=== PATIENT | female | born 1965 | race African-American/Black ===

== ENCOUNTER → 2017-12-10 | Outpatient (CLI) | payer OTHER ==
[~2017-12-10] VITALS: Ht 160 cm; Wt 80.5 kg
[~2017-12-10] MED LIST: ACYCLOVIR 400400 MG PO; ALAVERT10 MG PO; ASPERDRINK81 MG PO; BAYER CHEWABLE81 MG PO; COZAAR 50 MG TA50 M1 PO; CYMBALTA30 MG PO; CYMBALTA60 MG PO; HYDROCHLOROTHIA25 M2 PO; HYDROCODON-ACE1 EAC5 PO; HYDROCODON-ACE1 EACH PO; IMITREX 50 MG T50 MG PO; IRON325 PO; K-DUR 20 MEQ T20 MEQ PO; KLOR-CON 10 ER10 MEQ PO; LIPITOR20 MG PO; MELOXICAM15 MG PO; MIRALAX17 GM PO; NORCO 10-325 T1 EACH; NORCO 10-325 T1 EACH PO; OMEPRAZOLE 20 M20 MG PO; OMEPRAZOLE40 MG PO; OS-CAL 500+D C1 EACH PO; OXYCONTIN CR 1010 M1; PROZAC 20 MG20 MG PO; RANITIDINE 150150 M1 PO; RAPIFLUX20 MG PO; REGLAN 10 MG TA10 MG PO; ROBAXIN 750 MG750 M1; SEROQUEL 100 M100 MG PO; TOPAMAX 25 MG T25 M1 PO; TOPAMAX50 MG PO; VITAMIN B-12500 MCG PO; VITAMIN D31000 UNIT PO; ZANTAC 150MG T150 M1 PO
[2017-12-10 13:24] VITALS: BP 134/95
== END ==
LOC: PAIN 06:40
DX: Z09 Encounter for follow-up examination after completed treatment for conditions other than malignant neoplasm (principal); I10 Essential (primary) hypertension; F17.210 Nicotine dependence, cigarettes, uncomplicated

== ENCOUNTER → 2019-06-23 | Outpatient (CLI) | payer OTHER ==
[~2019-06-23] VITALS: Ht 160 cm; Wt 77.6 kg
[~2019-06-23] MED LIST changes: +MIRALAX119 GM PO
[2019-06-23 09:13] VITALS: BP 149/101
--- NOTE | 2019-06-23 09:17 | NUR ---
Pain Clinic Assessment: 1. History of Osteoarthritis: Left Lower Extremity Right Lower Extremity Right Upper Extremity Left Upper Extremity History of Rheumatoid Arthritis: Not Applicable 2. Height: 5 ft. 3 in. 160.0 cm. Weight: 171.0 lb. oz. 77.565 kg. Patient's BMI: 30.3 3. Vital Signs: BP: 149/101 Pulse: 104 Resp: 18 Temp: 02 Sat: 99 ECG Mon: 4. Pain Intensity: 9 5. Fall Risk: Dizziness: N Needs help standing or walking: N Fallen in the last 3 months: Y Fall risk comments: 6. Patient on Blood Thinner: None 7. History of Hypertension: Y 8. Opioid Therapy greater than 6 weeks: N Opiate Contract Signed: 9. Risk Assessment Tool Provided: 10. Functional Assessment Tool: 11. Recreational Drug Use: Current within past 3 mos Drug Type: Tobacco Use: Current Every Day Smoker Tobacco Type: Cigarettes Amount or Packs/day: 1/2 How Many Years: 40 Alcohol Use: Yes Frequency: Special Occasions Quant:
--- NOTE | 2019-06-24 12:57 | HPC ---
[facility] [address] [place] [address] PAIN MANAGEMENT CONSULTATION Name: BEVERLEY RAINEY Room #: REG [facility].#: [id number] Admission: 06/23/19 Attend Phys: Arun Cm DO Discharge: Date of : 61 Report #: [id number] THIS REPORT FOR: //name// CC: Arun Ramos MD Physician staff DATE OF SERVICE: 06/23/2019 CHIEF COMPLAINT: Low back pain. HISTORY OF PRESENT ILLNESS: As you know, the patient is a 54-year-old female returning in followup visit to discuss explantation of spinal cord stimulator. The patient made today's appointment to discuss her concerns about the spinal cord stimulator. She has a [employer] device that was implanted by Dr. Ramos in 2013. The patient underwent trial implantation at our clinic 1n 2013 with explantation of the device. She has been lost to followup visit to Dr. Ramos since that time except for some intermittent returns for spinal cord stimulator reprogramming. The patient states that she has undergone reprogramming again to address ongoing pain, but she does not feel the device is providing much in the way of benefit. She states she has actually turned off the device over a month ago and has noted no changes. She returns today to discuss the option of explantation of the device as it is causing her some irritation and she is unable to wear her daily clothing without causing pain. ALLERGIES: TAPE, CODEINE, LATEX. CURRENT MEDICATIONS: Atorvastatin 20 mg per day, sumatriptan 50 mg p.r.n., duloxetine 60 mg once a day, ferrous sulfate 325 mg per day, MiraLax 17 grams per day. SOCIAL HISTORY: The patient reports she smokes half pack tobacco per day, has done so for 40 years. Denies alcohol use, but does admit to daily marijuana use. She is not working, not receiving workmen's compensation. She is unaccompanied today. IMAGING: There is no new imaging available. PHYSICAL EXAMINATION: VITAL SIGNS: Blood pressure 149/101, pulse 104, respiratory rate 18 and unlabored. The patient is 99% on room air. Height 5 feet 3 inches tall, weight 171 pounds, BMI calculated 30.3. GENERAL: Well-developed, well-nourished, well-hydrated 54-year-old female appearing stated age, placing pain score today at around 9/10. HEENT: Normocephalic, atraumatic. Pupils equal, round, reactive to light. [facility] [address] [place] [address] PAIN MANAGEMENT CONSULTATION Name: BEVERLEY RAINEY Juany Room #: REG [facility]#: [id number] Admission: 06/23/19 Attend Phys: Arun Cm DO Discharge: Date of : 61 Report #: [id number] Speech is somewhat pressured. She is deemed a good historian. EXTREMITIES: Show no clubbing, no cyanosis, and no edema. The patient is wearing a right wrist brace. MUSCULOSKELETAL: The patient has some palpatory tenderness over the paraspinal musculature of lower lumbar spine. No spinous process tenderness. Spinal cord stimulator pulse generator is in place and well healed. There is some palpatory tenderness over this area as well. There does not appear to be any changes in skin color, texture overlying the area concerning for infection or changes in the skin color indicating potential problems with the device itself. ASSESSMENT: 1. Chronic low back pain. 2. Pain with a pulse generator for spinal cord stimulator. 3. Chronic intractable pain. PLAN: 1. The patient returns today in followup visit requesting explantation of the spinal cord stimulator as the pain from the area is becoming intolerable. She indicates that she is unable to wear normal clothing due to the positioning of the pulse generator precluding her from wearing any tight waisted garments or even belts with her pants. She has requested explantation of device. I advised the patient at this time we do not offer explantation procedures for spinal cord stimulating devices. We defer to the implanting physician for explantation of device. We recommend strongly that the patient will follow up with Dr. Raoms in regards to this explantation. We did discuss that many individuals will retain the devices unless there is a need for surgical option. The patient is insistent that the device be explanted and she is not receiving benefit and is causing her irritation. 2. The patient will follow up with Dr. Ramos in regards to explantation of spinal cord stimulating device that was implanted in 2013 here at [facility] by Dr. Ramos. I have advised the patient to contact Dr. Ramos's office in regards to explantation and determine if this is a treatment option. 3. No medication changes made at today's visit. The patient will continue current medical therapy as prior prescribed. 4. We made no adjustments in the patient's spinal cord stimulator today as the patient does not feel is beneficial and has had it off for a month and has noted no significant pain difference. It is unfortunate the patient is not seeing good benefit with the device as she must have at one point in time advised both ourselves and Dr. Ramos of good efficacy with the therapy. It is unfortunate she has lost this efficacious therapy. <ELECTRONICALLY SIGNED> By: Arun Cm DO 06/24/19 1257 [id number] 1235 Arun Cm DO /flaco
== END ==
LOC: PAIN 06:38
DX: M54.5 Low back pain (principal); G89.4 Chronic pain syndrome; Z79.899 Other long term (current) drug therapy; Z79.891 Long term (current) use of opiate analgesic; Z88.5 Allergy status to narcotic agent; Z91.040 Latex allergy status

== ENCOUNTER → 2020-03-17 | Outpatient (CLI) | payer OTHER ==
[~2020-03-17] MED LIST changes: +ADVAIR 250-501 EACH INH; +BENICAR20 MG PO; +DULOXETINE HCL60 MG PO; +FLONASE 0.05%50 MCG NASAL; +IRON325 M1 PO; +LINZESS145 MCG PO; +METFORMIN HCL500 M3 PO; +MIRTAZAPINE7.5 MG PO; +MULTIVITAMINS PO; +NORFLEX100 MG PO; +PROAIR HFA8.5 GM INH; +PROTONIX40 M2 PO; +VOLTAREN GEL 1100 GM TOP; +ZOFRAN 4 MG ORAL4 MG PO
== END ==
LOC: LAB 08:38
PROVIDERS: ATTEND Podiatrist
DX: Z01.812 Encounter for preprocedural laboratory examination (principal); Z20.828 Contact with and (suspected) exposure to other viral communicable diseases

== ENCOUNTER 2020-03-22 07:02 | Day surgery (SDC) | payer OTHER ==
[~2020-03-22] VITALS: Ht 160 cm; Wt 74.8 kg
--- NOTE | ~2020-03-22 | O ---
[facility] [place] [address] OPERATIVE REPORT Name: BEVERLEY RAINEY Room #: DEP [facility].#: [id number] Admission: 03/22/20 Attend Phys: Jace Vilchis DPM Discharge: 03/22/20 Date of : 61 Report #: [id number] THIS REPORT FOR: cc: ANNIE HERNÁNDEZ MD Physician not on staff Jace Vilchis DPM ~ CC: Jace HERNÁNDEZ Physician staff DATE OF SERVICE: 03/22/2020 SURGEON: Jace Vilchis DPM PREOPERATIVE DIAGNOSIS: Contracted right great toe as well as degenerative joint disease, right great toe joint. POSTOPERATIVE DIAGNOSIS: Contracted right great toe as well as degenerative joint disease, right great toe joint. PROCEDURE: Arthrodesis of the right great toe joint as well as the right hallux IPJ. ANESTHESIA: IV sedation with local nerve block. HEMOSTASIS: Maintained with well-padded ankle tourniquet to the right ankle. ESTIMATED BLOOD LOSS: Minimal. COMPLICATIONS: There were no complications during the procedure or the anesthesia. PREOPERATIVE COURSE: This patient at age 15 had injury that severed her extensor tendon to the great toe. She has since had a contracted plantar flexion of the right great toe, which has caused degenerative joint disease of the right great toe joint and a compensated gait due to the downward contraction and inability of the interphalangeal joint to allow proper propulsion. The patient has had increased disability over the years until she is now opting for surgical correction due to her increasing disability. The patient signed a preoperative consent form, admitting to understanding of the risks and complications of the surgery. DESCRIPTION OF PROCEDURE: The patient was wheeled to the operating room in usual supine condition, transferred to the operative table, given IV sedation. Once the IV sedation was found to be adequate, local nerve block was given to the right foot. The right foot was then prepped and draped in the usual sterile [facility] [address] [place] [address] OPERATIVE REPORT Name: BEVERLEY RAINEY Room #: DEP [facility].#: [id number] Admission: 03/22/20 Attend Phys: Jace Vilchis DPM Discharge: 03/22/20 Date of : 61 Report #: [id number] manner. Upon re-entering the operating room, anesthesia was checked and found to be adequate. A linear longitudinal incision was made over the dorsal medial aspect of the first MPJ. This was deepened sharply and bluntly, taking care to cauterize and retract all bleeders. Access was gained into the first metatarsophalangeal joint where a rotary bur was used to remove the cartilaginous structures from the head of the first metatarsal and the base of the proximal phalanx of the hallux. The toe was then placed in a good anatomical position, slightly dorsiflexion and a slight valgus position. A cannulated screw from the Trilliant cannulated screw set was obtained and placed across the arthrodesis site for temporary fixation. Next, using C-arm radiography, that position was checked and found to be adequate. A 2.7 lag screw was placed through and over the cannulated wire compressing the osteotomy site. The site was again checked with C-arm radiography and found to be adequately anatomically fixated. Next, a Trilliant plate was used from the arsenal set and placed over the arthrodesis site. This was temporarily fixated with the K wires through the appropriate screw holes. Next, locking screws were placed first proximally and then distally and 2 screws placed distal to the arthrodesis site and 2 proximal to the arthrodesis site. Lengths were checked with C-arm radiography and found to be of adequate length and good fixation maintained and compression of the arthrodesis site. The toe was maintained in a very good anatomical position; however, the interphalangeal joint still showed some contracture and this was addressed by a small stab incision dorsally and removing the cartilage from the distal proximal phalangeal head and the base of the distal phalanx. The proximal and distal bones were prepared removing as much cartilage as could be visibly evident. Next, a 4.0 Trilliant lag screw was placed from distal to proximal, again checked under C-arm radiography for position. The cannulated wire was seen to go through the medullary canal of both the distal and proximal phalanx of the right hallux. The appropriate length screw was then obtained and placed over the cannulated wire and good fixation occurred after arthrodesis in the IPJ. The hallux was found to be a good functional and anatomical position and stable fixation maintained throughout both arthrodesis sites. The tourniquet was released and hemostasis maintained using the cautery unit. Closure was then performed using 4-0 Vicryl suture for subcuticular tissue and 4-0 nylon suture in a simple interrupted fashion for closure of the skin tissue on the right great toe joint and right great toe. A sterile dressing was placed to the right foot. The patient left the operating room in stable condition and will follow up in about 3 days for postoperative wound management. By: [id number] 1103 MARIA DEL CARMEN WorthingtonM /nt
--- NOTE | 2020-03-22 07:54 | EKG ---
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
[2020-03-22 08:11] VITALS: BP 120/80
== END 2020-03-22 12:30 | disposition home or self-care (01) ==
LOC: OR 07:02 → TBA 07:03 → OR 11:46
PROVIDERS: ATTEND Podiatrist
DX: M19.071 Primary osteoarthritis, right ankle and foot (principal); M24.574 Contracture, right foot; M25.571 Pain in right ankle and joints of right foot; I10 Essential (primary) hypertension; E11.9 Type 2 diabetes mellitus without complications; E78.5 Hyperlipidemia, unspecified; F32.9 Major depressive disorder, single episode, unspecified; J45.909 Unspecified asthma, uncomplicated; D64.9 Anemia, unspecified; F41.9 Anxiety disorder, unspecified; G43.909 Migraine, unspecified, not intractable, without status migrainosus; K21.9 Gastro-esophageal reflux disease without esophagitis; F17.210 Nicotine dependence, cigarettes, uncomplicated; Z98.890 Other specified postprocedural states; Z90.710 Acquired absence of both cervix and uterus; Z79.899 Other long term (current) drug therapy; Z98.51 Tubal ligation status; Z86.73 Personal history of transient ischemic attack (TIA), and cerebral infarction without residual deficits; Z91.041 Radiographic dye allergy status; Z91.040 Latex allergy status; Z88.8 Allergy status to other drugs, medicaments and biological substances
CPT/HCPCS: 50010; 50101; 50386; 53023; 56526; 56871; 57091; 57178; 5726; 58334; 58337; 58338; 58340; 58343; 58345; 62110; 62900; 70005

== ENCOUNTER → 2020-05-12 | Outpatient (CLI) | payer OTHER ==
[~2020-05-12] MED LIST changes: +BENICAR40 MG PO; +INDERAL LA 80 M80 M1 PO; +LINZESS290 MCG PO; +VERAPAMIL ER120 MG PO
== END ==
LOC: LAB 09:00
PROVIDERS: ATTEND Podiatrist
DX: Z01.812 Encounter for preprocedural laboratory examination (principal); Z20.828 Contact with and (suspected) exposure to other viral communicable diseases

== ENCOUNTER 2020-05-17 11:28 | Day surgery (SDC) | payer OTHER ==
[~2020-05-17] VITALS: Ht 160 cm; Wt 79.4 kg
--- NOTE | ~2020-05-17 | O ---
[facility] [place] [address] OPERATIVE REPORT Name: BEVERLEY RAINEY Room #: DEP [facility].#: [id number] Admission: 05/17/20 Attend Phys: Jace Vilchis DPM Discharge: 05/17/20 Date of : 61 Report #: [id number] THIS REPORT FOR: cc: ANNIE HERNÁNDEZ - Family physician unknown Jace Vilchis DPM ~ DATE OF SERVICE: 05/17/2020 SURGEON: Jace Vilchis DPM. PREOPERATIVE DIAGNOSIS: Migration of hardware, right hallux. POSTOPERATIVE DIAGNOSIS: Migration of hardware, right hallux. PROCEDURE: Removal of painful screw, right great toe. ANESTHESIA: IV sedation with local nerve block. HEMOSTASIS: Applied with well-padded ankle tourniquet to the right ankle. ESTIMATED BLOOD LOSS: Minimal. COMPLICATIONS: There were no complications during the procedure or the anesthesia. PREOPERATIVE COURSE: This patient underwent an arthrodesis of her great toe joint and IPJ and is doing well with the great toe joint, but has bumped or injured the right great toe on a few occasions, causing the possible migration of the screw going through the IPJ. She can feel this at the distal end of her toe and is very painful upon any manipulation of the toe. X-ray examination in the office did show distal migration of the screw, so due to her anxiety and inability to remove this in the office, we have opted for IV sedation, outpatient surgery to remove the hardware. The patient understood the risks and complications of surgery and signed a preoperative consent form, admitting to understanding. DESCRIPTION OF PROCEDURE: The patient was wheeled to the operating room in usual supine condition, was transferred to the operative table, given IV sedation. Once the IV sedation was found to be adequate, local nerve block was given to the great toe on the right foot. The right foot was then prepped and draped in the usual sterile manner. Upon re-entering the operating room, anesthesia was checked and found to be adequate. An incision with a sterile #15 blade was made at the distal end of the toe over the screw head, which could be palpated and identified subcutaneously. The incision was deepened sharply and bluntly, taking care to cauterize and retract all bleeders. The distal end of the screw was able to be grasped with a small needle car driver and rotated in a [facility] [address] [place] [address] OPERATIVE REPORT Name: BEVERLEY RAINEY Room #: DEP [facility] Bill#: [id number] Admission: 05/17/20 Attend Phys: Jace Vilchis DPM Discharge: 05/17/20 Date of : 61 Report #: [id number] counterclockwise fashion and removed from the wound without any complications. The correction was maintained after removal of the screw and no other pathology identified. Hemostasis was maintained at the distal aspect of the toe and a simple suture and a horizontal mattress stitch was used with 4-0 nylon suture to close the skin wound. A sterile dressing was applied to the great toe. She already has Lortab 7.5 mg/325 for pain management. She was also prescribed Keflex 500 b.i.d. for the next 10 days for prophylaxis to protect the proximal hardware and postoperative infection. Again, sterile dressing was applied. She will ambulate in a postoperative shoe as tolerated and follow up in about 3 days for postoperative wound management. By: 2220 [id number] Jace Vilchis DPM /flaco
[2020-05-17 12:08] VITALS: BP 131/89
[2020-05-17 12:18] LABS: HEMOGLOBIN 12.8 gm/dL (12.0-15.0); MCH 27.7 pg (26.0-34.0); MCHC 32.8 g/dL (28.0-37.0); MCV 84.6 fL (80.0-100.0); RBC 4.62 mil/uL (4.20-5.00); RDW 13.9 % (10.5-14.5); WBC 9.6 thou/uL (4.0-11.0)
== END 2020-05-17 14:50 | disposition home or self-care (01) ==
LOC: OR 11:28 → TBA 11:28 → OR 11:43
PROVIDERS: ATTEND Podiatrist
DX: T84.84XA Pain due to internal orthopedic prosthetic devices, implants and grafts, initial encounter (principal); M79.674 Pain in right toe(s); I10 Essential (primary) hypertension; E11.9 Type 2 diabetes mellitus without complications; E78.00 Pure hypercholesterolemia, unspecified; J45.909 Unspecified asthma, uncomplicated; G43.909 Migraine, unspecified, not intractable, without status migrainosus; D64.9 Anemia, unspecified; F32.9 Major depressive disorder, single episode, unspecified; F41.9 Anxiety disorder, unspecified; K21.9 Gastro-esophageal reflux disease without esophagitis; F17.210 Nicotine dependence, cigarettes, uncomplicated; Z98.890 Other specified postprocedural states; Z79.899 Other long term (current) drug therapy; Z90.710 Acquired absence of both cervix and uterus; Z86.73 Personal history of transient ischemic attack (TIA), and cerebral infarction without residual deficits; Z98.51 Tubal ligation status; Z96.653 Presence of artificial knee joint, bilateral; Z91.041 Radiographic dye allergy status; Z91.040 Latex allergy status; Z88.8 Allergy status to other drugs, medicaments and biological substances; Y83.8 Other surgical procedures as the cause of abnormal reaction of the patient, or of later complication, without mention of misadventure at the time of the procedure
CPT/HCPCS: 50010; 50101; 50386; 56526; 57091; 57178; 62110; 62850; 70005

== ENCOUNTER → 2020-08-11 | Outpatient (CLI) | payer OTHER ==
[~2020-08-11] MED LIST changes: +HAIR, SKIN & N1 EAC2 PO
== END ==
LOC: LAB 14:00
PROVIDERS: ATTEND Podiatrist
DX: Z01.812 Encounter for preprocedural laboratory examination (principal); Z20.822 Contact with and (suspected) exposure to COVID-19

== ENCOUNTER 2020-08-16 06:08 | Day surgery (SDC) | payer OTHER ==
[~2020-08-16] VITALS: Ht 160 cm; Wt 77.1 kg
--- NOTE | ~2020-08-16 | O ---
[facility] [place] [address] OPERATIVE REPORT Name: BEVERLEY RAINEY Juany Room #: DEP [facility].#: [id number] Admission: 08/16/20 Attend Phys: Jace Vilchis DPM Discharge: 08/16/20 Date of : 61 Report #: [id number] THIS REPORT FOR: cc: Physician not on staff Physician not on staff Jace Vilchis DPM ~ DATE OF SERVICE: 08/16/2020 SURGEON: Jace Vilchis DPM. PREOPERATIVE DIAGNOSES: Arthritis, degenerative joint disease, right great toe interphalangeal joint. POSTOPERATIVE DIAGNOSES: Arthritis, degenerative joint disease, right great toe interphalangeal joint. PROCEDURE: Arthrodesis of the IPJ right great toe. ANESTHESIA: IV sedation with local nerve block. HEMOSTASIS: Applied well-padded ankle tourniquet to the right ankle. ESTIMATED BLOOD LOSS: Minimal. COMPLICATIONS: There were no complications during the procedure or the anesthesia. PREOPERATIVE COURSE: This patient had a flaccid right great toe due to an injury several years ago. Earlier, she was operated on to fuse the great toe joint, which was a success; however, attempt at fusion of the IP joint at the same time failed as she had issues with the screw placed through the joint and it had to be removed. The patient later on developed pain and need for return to surgery for rearthrodesis of the right great toe IPJ. She has no symptoms associated with her MPJ fusion. The patient understands risks and complications of surgery, signed a preoperative consent form, admitting to understanding. DESCRIPTION OF PROCEDURE: The patient was wheeled to the operating room in usual supine condition, transferred to the operating table, given IV sedation. Once IV sedation was found to be adequate, local nerve block was given to the right foot. The right foot was then prepped and draped in the usual sterile manner. Upon re-entering the operating room, anesthesia was checked and found to be adequate. Esmarch tourniquet was used to exsanguinate the blood from the right foot and ankle tourniquet elevated to 250 mmHg. A linear longitudinal incision was made over the dorsal aspect of the right hallux. This was deepened sharply and bluntly, taking care to cauterize and retract all bleeders. Access [address] [address] OPERATIVE REPORT Name: BEVERLEY RAINEY Room #: DEP [facility].#: [id number] Admission: 08/16/20 Attend Phys: Jace Vilchis DPM Discharge: 08/16/20 Date of : 61 Report #: [id number] was gained to the bony structures of the proximal and distal phalanx of the right hallux and the bone was stripped of the periosteum and scar tissue, exposing the failed arthrodesis site. A rasp was used to freshen the edges of the arthrodesis site to bleeding bone. Next, the two bony edges were placed together and temporarily fixated with a K-wire and held in good position. Next, a #10 staple was decided on from the Trilliant set. Using the drill guide, two drill holes were made for the arms of the staple. A drill guide was removed and the staple inserted into the aforementioned drill holes. This was then tamped down and secured. There was a good fixation, but still some movement, so a second #10 staple was retrieved and implanted in a similar fashion beside the previously implanted staple and this was found to have good stable fixation at the IP. The tourniquet was released to the right foot and hemostasis maintained using the cautery unit. Deep closure was performed with 4-0 Vicryl suture and subcuticular closure also with 4-0 Vicryl suture. A sterile dressing was applied to the right hallux along with Steri-Strips to help augment the skin closure. The patient will ambulate in a postoperative shoe and be seen in the office for a wound evaluation in 3 days. She was given a prescription for Keflex 500 mg b.i.d. for wound prophylaxis and also Lortab 7.5 mg/325 for pain management. The patient left the operating room in stable condition and will follow up again like I mentioned in 3 days for postoperative evaluation. By: 26 45 Jace Vilchis DPM /nt
[2020-08-16 06:45] VITALS: BP 104/67
== END 2020-08-16 09:35 | disposition home or self-care (01) ==
LOC: OR 06:08 → TBA 06:08 → OR 09:15
PROVIDERS: ATTEND Podiatrist
DX: M19.071 Primary osteoarthritis, right ankle and foot (principal); M79.674 Pain in right toe(s); I10 Essential (primary) hypertension; E11.9 Type 2 diabetes mellitus without complications; J45.909 Unspecified asthma, uncomplicated; E78.00 Pure hypercholesterolemia, unspecified; G43.909 Migraine, unspecified, not intractable, without status migrainosus; D64.9 Anemia, unspecified; F41.9 Anxiety disorder, unspecified; F32.9 Major depressive disorder, single episode, unspecified; F17.210 Nicotine dependence, cigarettes, uncomplicated; Z98.890 Other specified postprocedural states; Z79.899 Other long term (current) drug therapy; Z96.653 Presence of artificial knee joint, bilateral; Z86.73 Personal history of transient ischemic attack (TIA), and cerebral infarction without residual deficits; Z90.710 Acquired absence of both cervix and uterus; Z98.51 Tubal ligation status; Z91.041 Radiographic dye allergy status; Z91.040 Latex allergy status; Z88.6 Allergy status to analgesic agent; Z88.8 Allergy status to other drugs, medicaments and biological substances
CPT/HCPCS: 50010; 50101; 50386; 56526; 57091; 58175; 62110; 62850; 70005

== ENCOUNTER → 2020-10-03 | Outpatient (CLI) | payer OTHER ==
--- NOTE | ~2020-10-03 | O ---
[facility] [place] [address] OPERATIVE REPORT Name: BEVERLEY RAINEY Room #: REG [facility]#: [id number] Admission: 10/03/20 Attend Phys: Jace Vilchis DPM Discharge: Date of : 61 Report #: [id number] THIS REPORT FOR: cc: FAM - Family physician unknown FAM - Family physician unknown Jace Vilchis DPM ~ DOC #: [id number] Jace Vilchis DPM DATE OF SERVICE: 10/04/2020 PREOPERATIVE DIAGNOSIS: Contracted, right great toe. POSTOPERATIVE DIAGNOSIS: Contracted right great toe and failure of hardware, right great toe. PROCEDURE: Insertion of a 4.0 Trilliant screw for stabilization of the contracted toe, removal of failed hardware, the lateral staple in the IPJ. HEMOSTASIS: Applied a well-padded ankle tourniquet to the right ankle. ESTIMATED BLOOD LOSS: Minimal. COMPLICATIONS: There were no complications during the procedure or the anesthesia. PREOPERATIVE COURSE: This patient had an attempted fusion of the right great toe, which did loosen and cause some pain as there was movement at the arthrodesis site. The tatyana were intact. They were placed during the previous surgery, but a little bit of movement she had regained was still painful so it was opted for that we place a screw to increase stabilization, which should eliminate her pain. The patient understood the risks and complications of surgery and signed a preoperative consent form admitting to her understanding of the risks and complications as well as the technical aspects of the procedure. DESCRIPTION OF PROCEDURE: The patient was wheeled to the operating room in the supine condition, transferred to the operative table, given IV sedation. Once IV sedation was found to be adequate. Local nerve block was given to the right great toe. The right great toe was then prepped and draped in the usual sterile manner. A Trilliant cannulated wire was obtained and through C-arm visualization was placed through the medullary canal of the proximal phalanx and distal phalanx of the right hallux. Once good visualization through the central medullary area of these 2 bones was identified, the site was measured and found to be 46 mm in required length of the screw. A 4.0 cannulated Trilliant screw was obtained and placed over the cannulation after two stab incisions were made on either side of the cannulated wire for insertion of the screw. This was hand [address] [address] OPERATIVE REPORT Name: BEVERLEY RAINEY Room #: REG [facility]#: [id number] Admission: 10/03/20 Attend Phys: Jace Vilchis DPM Discharge: Date of : 61 Report #: [id number] screwed over the cannulated wire through the proximal and distal phalanx. In the process of screen in the screw, the lateral staple was contacted and came free and was visualized externally on the dorsal right great toe. The screw was tightened upon end range of motion visualized to be flush with the distal aspect of the toe and then through the central aspect of the medullary canal of the proximal distal phalanx and in good position. It was then decided that we needed to retrieve the lateral staple which we did do a small incision and the staple was easily identified and grasped using a needle transit driver and removed from the wound. Again, another C-arm radiography was visualized good position of the screw and removal of the staple. The medial staple remained in the wound as it was providing good contact. The wounds were copiously flushed with sterile saline. The cannulated wire was removed. The dorsal incision was reopposed using 4-0 nylon suture in a simple interrupted fashion as well as one simple stitch on the distal aspect of the right great toe for closure of that wound. Hemostasis was maintained throughout with a cautery unit. Sterile dressing applied to the right great toe, which upon external manipulation was found to be very stable and rigid. The patient left the operating room in stable condition. We will follow up in about 3 days for postoperative wound management, ambulate in the postoperative shoe as tolerated. She was given Lortab 7.5 mg/325 for pain management and Keflex 500 mg b.i.d. for 10 days for wound prophylaxis. BLU Gallego/JOJO By: 34 Jace Vilchis DPM /flaco
== END ==
LOC: LAB 12:02
PROVIDERS: Student in an Organized Health Care Education/Training Program; ATTEND Podiatrist
DX: Z01.812 Encounter for preprocedural laboratory examination (principal); Z20.822 Contact with and (suspected) exposure to COVID-19

== ENCOUNTER → 2020-10-04 | Day surgery (SDC) | payer OTHER ==
[~2020-10-04] VITALS: Ht 160 cm; Wt 73.9 kg
--- NOTE | ~2020-10-04 | O ---
[facility] [place] [address] OPERATIVE REPORT Name: BEVERLEY RAINEY Room #: REG [facility].#: [id number] Admission: 10/04/20 Attend Phys: Jace Vilchis DPM Discharge: Date of : 61 Report #: [id number] THIS REPORT FOR: cc: FAM - Family physician unknown FAM - Family physician unknown Jace Vilchis DPM ~ DOC #: [id number] Jace Vilchis DPM DATE OF SERVICE: 10/04/2020 PREOPERATIVE DIAGNOSIS: Contracted, right great toe. POSTOPERATIVE DIAGNOSIS: Contracted right great toe and failure of hardware, right great toe. PROCEDURE: Insertion of a 4.0 Trilliant screw for stabilization of the contracted toe, removal of failed hardware, the lateral staple in the IPJ. HEMOSTASIS: Applied a well-padded ankle tourniquet to the right ankle. ESTIMATED BLOOD LOSS: Minimal. COMPLICATIONS: There were no complications during the procedure or the anesthesia. PREOPERATIVE COURSE: This patient had an attempted fusion of the right great toe, which did loosen and cause some pain as there was movement at the arthrodesis site. The tatyana were intact. They were placed during the previous surgery, but a little bit of movement she had regained was still painful so it was opted for that we place a screw to increase stabilization, which should eliminate her pain. The patient understood the risks and complications of surgery and signed a preoperative consent form admitting to her understanding of the risks and complications as well as the technical aspects of the procedure. DESCRIPTION OF PROCEDURE: The patient was wheeled to the operating room in the supine condition, transferred to the operative table, given IV sedation. Once IV sedation was found to be adequate. Local nerve block was given to the right great toe. The right great toe was then prepped and draped in the usual sterile manner. A Trilliant cannulated wire was obtained and through C-arm visualization was placed through the medullary canal of the proximal phalanx and distal phalanx of the right hallux. Once good visualization through the central medullary area of these 2 bones was identified, the site was measured and found to be 46 mm in required length of the screw. A 4.0 cannulated Trilliant screw was obtained and placed over the cannulation after two stab incisions were made on either side of the cannulated wire for insertion of the screw. This was hand [address] [address] OPERATIVE REPORT Name: BEVERLEY RAINEY [id number] Admission: 10/04/20 Attend Phys: Jace Vilchis DPM Discharge: Date of : 61 Report #: [id number] screwed over the cannulated wire through the proximal and distal phalanx. In the process of screen in the screw, the lateral staple was contacted and came free and was visualized externally on the dorsal right great toe. The screw was tightened upon end range of motion visualized to be flush with the distal aspect of the toe and then through the central aspect of the medullary canal of the proximal distal phalanx and in good position. It was then decided that we needed to retrieve the lateral staple which we did do a small incision and the staple was easily identified and grasped using a needle locomotive driver and removed from the wound. Again, another C-arm radiography was visualized good position of the screw and removal of the staple. The medial staple remained in the wound as it was providing good contact. The wounds were copiously flushed with sterile saline. The cannulated wire was removed. The dorsal incision was reopposed using 4-0 nylon suture in a simple interrupted fashion as well as one simple stitch on the distal aspect of the right great toe for closure of that wound. Hemostasis was maintained throughout with a cautery unit. Sterile dressing applied to the right great toe, which upon external manipulation was found to be very stable and rigid. The patient left the operating room in stable condition. We will follow up in about 3 days for postoperative wound management, ambulate in the postoperative shoe as tolerated. She was given Lortab 7.5 mg/325 for pain management and Keflex 500 mg b.i.d. for 10 days for wound prophylaxis. BLU Gallego/JOJO By: 34 Jace Vilchis DPM /flaco
[2020-10-04 10:31] VITALS: BP 130/87
== END | disposition home or self-care (01) ==
LOC: OR 09:09
PROVIDERS: ATTEND Podiatrist
DX: M19.071 Primary osteoarthritis, right ankle and foot (principal)
CPT/HCPCS: 50010; 50101; 50386; 50951; 56526; 57091; 57178; 58178; 58340; 62110; 62850; 70005

== ENCOUNTER → 2021-04-13 | Outpatient (CLI) | payer OTHER | LOC: LAB 09:34 | PROVIDERS: ATTEND Student in an Organized Health Care Education/Training Program | DX: U07.1 COVID-19 (principal); Z01.812 Encounter for preprocedural laboratory examination ==

== ENCOUNTER → 2021-05-23 | Day surgery (SDC) | payer OTHER ==
[~2021-05-23] VITALS: Ht 160 cm; Wt 77.1 kg
--- NOTE | 2021-05-23 07:59 | EKG ---
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 : 1965 Requested By: Jace Vilchis Order Number: [id number] MD: King Juarez Measurements Intervals [place] Rate: 76 P: 46 [place]: 158 QRS: 10 QRSD: 81 T: 28 QT: 374 QTc: 421 Interpretive Statements Sinus rhythm Probable left atrial enlargement Compared to ECG 03/22/2020 07:48:06 No significant changes Electronically Signed On 05-23-2021 7:59:40 ELECTRICAL AND INSTRUMENTATION MECHANIC by King Juarez [email or web address] <ELECTRONICALLY SIGNED> By: King Juarez MD, [facility] 05/23/21 0759 0726 0726 King Juarez MD, [facility] /EPI
[2021-05-23 08:00] VITALS: BP 119/81
--- NOTE | 2021-06-07 13:12 | O ---
[facility] [place] [address] OPERATIVE REPORT Name: BEVERLEY RAINEY Room #: REG [facility]#: [id number] Admission: 05/23/21 Attend Phys: Jace Vilchis DPM Discharge: Date of : 61 Report #: [id number] THIS REPORT FOR: cc: FAM - Family physician unknown FAM - Family physician unknown Jace Vilchis DPM ~ DATE OF SERVICE: 05/23/2021 SURGEON: Jace Vilchis DPM. PREOPERATIVE DIAGNOSIS: Degenerative joint disease, interphalangeal joint, right hallux. POSTOPERATIVE DIAGNOSIS: Degenerative joint disease, interphalangeal joint, right hallux. PROCEDURE: Arthrodesis of the IPJ right hallux. ANESTHESIA: IV sedation with local nerve block. Hemostasis was applied, well-padded ankle tourniquet to the right ankle. ESTIMATED BLOOD LOSS: Minimal. COMPLICATIONS: There were no complications during the procedure or the anesthesia. PREOPERATIVE COURSE: This patient has previously had an attempted fusion on the interphalangeal joint of the right hallux with a single screw from distal to proximal in the great toe. This worked for a short period of time and then loosened and the joint became mobile and painful. X-rays in the office confirmed the presence of movement within the screw and the medullary canal of the proximal phalanx of the right hallux. We then opted to proceed with arthrodesis using a compression plate on the dorsal aspect of the IPJ and leaving the screw in place as a third point of fixation. The patient understood the risks and complications of surgery and signed a preoperative consent form admitting to her understanding. DESCRIPTION OF PROCEDURE: The patient was wheeled to the operating room in supine condition, transferred to the operative table, given IV sedation. Once IV sedation was found to be adequate, local nerve block was given to the right foot. The right foot was then prepped and draped in the usual sterile manner. Upon re-entering the operating room, anesthesia was checked and found to be adequate. Esmarch tourniquet was used to exsanguinate blood from the right foot and the ankle tourniquet elevated to 250 mmHg. A L-shaped incision was made over the dorsal aspect of the right hallux interphalangeal joint exposing the [address] [address] OPERATIVE REPORT Name: BRIGIDBEVERLEY Room #: REG [facility].#: [id number] Admission: 05/23/21 Attend Phys: Jace Vilchis DPM Discharge: Date of : 61 Report #: [id number] previously arthrodesed IPJ. There was a remaining staple that was left in previously that was removed in order to add more compression to the site with the plate. The great toe was then dissected layer by layer avoiding neurovascular structures until the bone and joint of the interphalangeal joint of the right hallux was identified and reached. The soft tissue was reflected from the dorsal aspect of the right first and second phalanx of the hallux preparing for the plate. A 3-hole plate was obtained and placed over the site and found to adequately cover the proposed arthrodesis site. Temporary K-wires were used to position the plate. The proximal hole was drilled first and measured and this turned out to be a 14 mm screw to be placed in a locking hole. This was placed without complications and tightened on end range of motion and providing stability of the proximal aspect of the plate. Next, the wire was removed from the distal aspect of the plate and the compression hole drilled again measuring 14 mm in length and a 14 mm screw placed in the compression hole of the plate. Next, a drill hole was drilled in the third and final hole of the plate again measured to be 14 mm in length and a 14 mm screw placed in this plate and compression was achieved through the plate and through visualization of C-arm radiography. Upon external evaluation, the joint was checked manually and found to be in good stable form and in good anatomical position. This was affirmed using C-arm radiography. The tourniquet was released and capillary refill immediately returned to all digits on the right foot. Hemostasis was maintained using a cautery unit. Closure was performed using 4-0 Vicryl suture in a subcuticular fashion and closure of the skin was performed using 4-0 nylon suture in a horizontal and simple interrupted mattress sutures. Sterile dressing was applied to the right foot. Again, one more x-ray was taken through C-arm radiography and found to be in good anatomical position as far as the hardware and the position of the arthrodesis. The patient left the operating room in stable condition. She will be given Lortab 7.5 mg/325 for pain management and will follow up in the office in about 3 days. She will also be given Keflex 500 mg b.i.d. for wound prophylaxis. <ELECTRONICALLY SIGNED> By: Jace Vilchis DPM 06/07/21 1312 1529 1640 Jace Vilchis DPM /nt
== END | disposition home or self-care (01) ==
LOC: OR 04-18 08:32
PROVIDERS: ATTEND Podiatrist
DX: M25.571 Pain in right ankle and joints of right foot (principal); M19.071 Primary osteoarthritis, right ankle and foot; I10 Essential (primary) hypertension; E11.9 Type 2 diabetes mellitus without complications; E78.00 Pure hypercholesterolemia, unspecified; J45.909 Unspecified asthma, uncomplicated; F31.9 Bipolar disorder, unspecified; F41.9 Anxiety disorder, unspecified; G43.909 Migraine, unspecified, not intractable, without status migrainosus; K21.9 Gastro-esophageal reflux disease without esophagitis; F17.210 Nicotine dependence, cigarettes, uncomplicated; Z98.890 Other specified postprocedural states; Z79.899 Other long term (current) drug therapy; Z98.51 Tubal ligation status; Z96.653 Presence of artificial knee joint, bilateral; Z86.73 Personal history of transient ischemic attack (TIA), and cerebral infarction without residual deficits; Z90.711 Acquired absence of uterus with remaining cervical stump; Z88.6 Allergy status to analgesic agent; Z91.040 Latex allergy status; Z91.041 Radiographic dye allergy status; Z88.8 Allergy status to other drugs, medicaments and biological substances
CPT/HCPCS: 50010; 50101; 50386; 56526; 57091; 57178; 58338; 58341; 58342; 59120; 62110; 62900; 70005